=== PATIENT | male | born 1995 | race Caucasian/White ===

== ENCOUNTER 2017-12-01 22:30 | Emergency (ER) | payer OTHER ==
[2017-12-01] MEDS ORDERED: Ibuprofen 800 MG TAB ONE (22:50)
[2017-12-01] MEDS ORDERED: HYDROcodone/Acetaminophen 10/325 mg Tablet ONE (22:50)
--- NOTE | 2017-12-02 07:50 | RAD ---
RIGHT FOREARM: Date: 12/01/17 FINDINGS: A fracture of the mid shaft of the ulna is present with no displacement. The radius appears intact. T he visible carpal bones appear normal as well. IMPRESSION: Fracture of the mid shaft of the ulna. POS: [facility]
--- NOTE | 2017-12-02 07:51 | RAD ---
PORTABLE CHEST: Date: 12/01/17 An AP portable film at 2248 hours shows a normal sized heart and clear lungs. The mediastinum shows n o widening or shift. The trachea is midline. There are no pleural effusions or signs of a pneumothora x. No gross fractures were identified, though dedicated rib films would be better for those bones. Th e clavicles appear intact. There is no shoulder dislocation. IMPRESSION: No acute thoracic findings. POS: [facility]
== END 2017-12-01 23:30 | disposition home or self-care (01) ==
LOC: BURERS 22:30
DX: S52.224A Nondisplaced transverse fracture of shaft of right ulna, initial encounter for closed fracture (principal); W22.8XXA Striking against or struck by other objects, initial encounter
CPT/HCPCS: 29125; 71045